=== PATIENT | female | born 1960 | race Caucasian/White ===

== ENCOUNTER 2019-05-05 12:11 | Emergency (ER) | payer BC, MEDICAID ==
[2019-05-05 12:28] VITALS: BP 109/74
--- NOTE | 2019-05-05 13:43 | ER Document Report ---
HPI - HPI Patient complains to provider of: med refill Time Seen by Provider: 05/05/19 13:23 Onset: Other - 3 days Quality of pain: No pain Pain Level: Denies Context: Patient presents stating that she recently relocated to this area and has run out of her prescription of trazodone that she uses to treat her depression. Patient also has history of insomnia. Patient states she is been out of the medicine for 3 days. Patient was advised not to abruptly discontinue the medication. Patient denies any complaints at present. Associated Symptoms: None Exacerbated by: Denies Relieved by: Denies Similar symptoms previously: No Recently seen / treated by doctor: No - ROS ROS below otherwise negative: Yes Systems Reviewed and Negative: Yes All other systems reviewed and negative - CONSTITUTIONAL Constitutional: DENIES: Fever, Chills - NEURO Neurology: DENIES: Headache, Weakness - DERM Skin Color: Normal Skin Problems: None Past Medical History - General Information source: Patient - Social History Smoking Status: Current Every Day Smoker Smoking Education Provided: Yes Frequency of alcohol use: None Drug Abuse: None Occupation: none Family History: Reviewed & Not Pertinent Patient has suicidal ideation: No Patient has homicidal ideation: No Renal/ Medical History: Denies: Hx Peritoneal Dialysis GI Medical History: Reports: Hx Gastroesophageal Reflux Disease Psychiatric Medical History: Reports: Hx Depression Past Surgical History: Reports: Hx Section, Hx Orthopedic Surgery Vertical Provider Document - CONSTITUTIONAL Agree With Documented VS: Yes Exam Limitations: No Limitations General Appearance: WD/WN, No Apparent Distress - HEENT HEENT: Atraumatic, Normocephalic - NECK Neck: Normal Inspection, Supple. negative: Lymphadenopathy-Left, Lymphadenopathy-Right - RESPIRATORY Respiratory: Breath Sounds Normal, No Respiratory Distress - CARDIOVASCULAR Cardiovascular: Regular Rate, Regular Rhythm - MUSCULOSKELETAL/EXTREMETIES Musculoskeletal/Extremeties: MAEW - NEURO Level of Consciousness: Awake, Alert, Appropriate Motor/Sensory: No Motor Deficit - DERM Integumentary: Warm, Dry, No Rash Course - Re-evaluation Re-evalutation: 05/05/19 13:41 Patient advised that the emergency department does not refill medications. Patient encouraged to follow-up with a primary doctor to get refills of her medications. - Vital Signs Vital signs: Temp Pulse Resp BP Pulse Ox 97.5 F 68 16 109/74 95 05/05/19 12:27 05/05/19 12:27 05/05/19 12:27 05/05/19 12:27 05/05/19 12:27 Discharge - Discharge Clinical Impression: Medication refill Condition: Stable Disposition: HOME, SELF-CARE Instructions: Family Physicians / Practices Additional Instructions: Return immediately for any new or worsening symptoms Followup with your primary care provider, call tomorrow to make a followup appointment Prescriptions: Trazodone HCl 50 mg PO QHS #30 tablet Referrals: [facility] [Provider Group] - Follow up as needed [facility] [Provider Group] - Follow up as needed
== END 2019-05-05 14:13 | disposition home or self-care (01) ==
LOC: ER 12:11
DX: Z76.0 Encounter for issue of repeat prescription (principal); F32.9 Major depressive disorder, single episode, unspecified; Z91.14 Patient's other noncompliance with medication regimen; F17.200 Nicotine dependence, unspecified, uncomplicated
CPT/HCPCS: 99281